=== PATIENT | female | born 2000 | race African-American/Black ===

== ENCOUNTER 2023-08-25 14:18 | Emergency (ER) | payer BC, MEDICAID ==
[~2023-08-25] VITALS: Ht 162.6 cm; Wt 52.0 kg
[2023-08-25 14:31] VITALS: O2SAT 100
[2023-08-25 15:12] LABS: HEMATOCRIT 37.8 % (36.0-48.0); HEMOGLOBIN 12.8 g/dL (12.0-16.0); MEAN CORPUSCULAR HEMOGLOBIN 32.2 pg (28.0-32.0); MEAN CORPUSCULAR HGB CONC 33.8 g/dL (31.0-37.0); MEAN CORPUSCULAR VOLUME 95.3 fL (81.0-99.0); PLATELET 205 x1000/uL (130-400); RED BLOOD CELL COUNT 3.97 mill/uL (4.2-5.4); WHITE BLOOD COUNT 6.8 x1000/uL (4.5-11.0)
[2023-08-25 15:43] LABS: CHLORIDE 103 mEq/L (98-107); POTASSIUM 3.6 mEq/L (3.5-5.1); SODIUM 135 mEq/L (136-145)
[2023-08-25 15:44] LABS: CALCIUM 9.1 mg/dL (8.7-10.4); CARBON DIOXIDE 27 mEq/L (21-32)
[2023-08-25 15:49] LABS: CREATININE 0.8 mg/dL (0.6-1.0); GLUCOSE 88 mg/dL (70-105); UREA NITROGEN BLOOD 10 mg/dL (9-23)
[2023-08-25 15:51] LABS: TROPONIN I HIGH SENSITIVITY < 4 ng/L (3.0-34)
[2023-08-25 16:55] LABS: CLARITY URINE CLEAR (CLEAR); COLOR URINE YELLOW (YELLOW); GLUCOSE URINE NEGATIVE (NEGATIVE); KETONES URINE TRACE (NEGATIVE); LEUKOCYTE ESTERASE URINE TRACE (NEGATIVE); NITRITE URINE NEGATIVE (NEGATIVE); OCCULT BLOOD URINE NEGATIVE (NEGATIVE); PROTEIN URINE NEGATIVE (NEGATIVE); SPECIFIC GRAVITY URINE 1.019 (1.005-1.030)
[2023-08-25 17:11] LABS: BACTERIA URINE 1+; RBC URINE 0-2 /hpf (0-2); SQUAMOUS EPITHELIAL CELL URINE 1+ /lpf (RARE/1+)
[2023-08-25] MEDS: IBUPROFEN 400MG TABLET PO ONE (18:00)
[2023-08-25 18:01] VITALS: BP 122/77; PULSE 68; RESP 18; TEMP 98.3
== END 2023-08-25 18:18 | disposition home or self-care (01) ==
LOC: ER 15:15
DX: R42 Dizziness and giddiness (principal)
CPT/HCPCS: 36415; 80048; 81003; 81025; 84484; 85027; 93005; 99284

== ENCOUNTER 2024-04-02 21:00 | Emergency (ER) | payer OTHER, MEDICAID ==
[~2024-04-02] VITALS: Ht 165.1 cm; Wt 55.0 kg
[2024-04-02 21:31] VITALS: O2SAT 100
[2024-04-02] MEDS ORDERED: OSEL30CA MT (23:13)
[2024-04-02] MEDS ORDERED: ACET-2708 MT (23:13)
[2024-04-02 23:28] VITALS: BP 122/79; PULSE 80; RESP 20; TEMP 37.00296; O2SAT 100
== END 2024-04-02 23:36 | disposition home or self-care (01) ==
LOC: ER 21:00
DX: B34.9 Viral infection, unspecified (principal)
CPT/HCPCS: 99283